=== PATIENT | male | born 1970 | race Caucasian/White ===

== ENCOUNTER 2016-10-13 23:59 | Emergency (ER) | payer MEDICARE | END 2016-10-14 01:00 | disposition home or self-care (01) | LOC: ER 23:59 | DX: S61.206A Unspecified open wound of right little finger without damage to nail, initial encounter (principal); Z23 Encounter for immunization; Z89.021 Acquired absence of right finger(s); Z79.899 Other long term (current) drug therapy; Z91.048 Other nonmedicinal substance allergy status; W22.8XXA Striking against or struck by other objects, initial encounter | CPT/HCPCS: 90471 ==